=== PATIENT | female | born 1990 | race Caucasian/White ===

== ENCOUNTER 2020-06-20 11:35 | Emergency (ER) | payer BC ==
[~2020-06-20] VITALS: Ht 170.2 cm; Wt 88.6 kg
[2020-06-20 11:47] VITALS: BP 108/69
--- NOTE | 2020-06-20 12:01 | NUR ---
PT IS RESTING WITH HER EYES CLOSED. RESPIRATIONS 20 SPO2 100%.
== END 2020-06-20 13:23 | disposition home or self-care (01) ==
LOC: ED 13:10
DX: F41.1 Generalized anxiety disorder (principal); R06.4 Hyperventilation; R20.0 Anesthesia of skin
CPT/HCPCS: 99283